=== PATIENT | male | born 1975 | race Two or more races ===

== ENCOUNTER 2022-09-17 21:17 | Emergency (ER) | payer BC, OTHER ==
[~2022-09-17] VITALS: Ht 160 cm; Wt 59.8 kg
[2022-09-17] MEDS ORDERED: KETOROLAC TROMETH 60MG/2ML VIAL IM ONE (22:00)
[2022-09-17] MEDS ORDERED: HYDROcodone-ACET 5/325MG TAB PO ONE (22:00)
[2022-09-17 22:10] LABS: Basophils # (auto) 0 10 ^3/uL (0-0.2); Basophils % (auto) 0.2 % (0.0-2.0); Eosinophils # (auto) 0.1 10 ^3/uL (0-0.8); Eosinophils % (auto) 1.5 % (0.0-7.0); Hematocrit 43.5 % (41.0-53.0); Hemoglobin 15.2 g/dL (13.5-17.5); Lymphocytes # (auto) 2.4 10 ^3/uL (0.4-5.4); Mean Corpuscular Hemoglobin 30.8 pg (28.0-32.0); Monocytes # (auto) 0.6 10 ^3/uL (0-1.3); Monocytes % (auto) 7.9 % (0.0-12.0); Neutrophils # (auto) 4.4 10 ^3/uL (1.6-8.6); Neutrophils % (auto) 58.4 % (37.0-80.0); Nucleated Red Blood Cells % 0.6 %; Red Blood Cells 4.95 10^6/uL (4.5-5.90); White Blood Cell 7.5 10^3/uL (4.4-10.8)
[2022-09-17 22:26] LABS: Albumin 4.1 g/dL (3.4-5.0); Calcium 8.6 mg/dL (8.5-10.1); Potassium 3.7 mmol/L (3.5-5.1)
[2022-09-17 22:30] LABS: BUN/Creatinine Ratio 21.6 (10.0-20.0); Bilirubin, Total 1.4 mg/dL (0.2-1.0); Total Protein 7.7 g/dL (6.4-8.2)
[2022-09-17 23:19] LABS: Urine Bacteria FEW /hpf (None Seen); Urine Blood Negative /uL (Negative); Urine Specific Gravity 1.026 (1.001-1.035); Urine WBC 1 /hpf (0 - 3)
[2022-09-17] MEDS ORDERED: IBUP-1455 PO (23:56)
[2022-09-18 00:09] VITALS: BP 114/52
[2022-09-18] MEDS ORDERED: CIPR-173 PO (19:47)
== END 2022-09-18 00:10 | disposition home or self-care (01) ==
LOC: ER 21:17
DX: I88.0 Nonspecific mesenteric lymphadenitis (principal)
CPT/HCPCS: 36415; 74176; 80053; 81001; 83605; 83690; 85025; 96372; 99285; J1885

== ENCOUNTER 2022-09-18 16:06 | Emergency (ER) | payer BC ==
[~2022-09-18] VITALS: Ht 160 cm; Wt 60.7 kg
[~2022-09-18 16:06] MED LIST: IBUP-1455 PO
[2022-09-18] MEDS ORDERED: HYDROcodone-ACET 10/325MG TAB PO ONE (17:15)
[2022-09-18] MEDS ORDERED: CIPROFLOXACIN HCL 500 MG TAB PO ONE (17:15)
[2022-09-18] MEDS ORDERED: CIPR-173 PO (19:47)
[2022-09-18 21:00] VITALS: BP 142/70
== END 2022-09-18 21:18 | disposition home or self-care (01) ==
LOC: ER 16:06
DX: I88.0 Nonspecific mesenteric lymphadenitis (principal); Z79.1 Long term (current) use of non-steroidal anti-inflammatories (NSAID); Z79.2 Long term (current) use of antibiotics
CPT/HCPCS: 82962